=== PATIENT | female | born 1965 | race American Indian/Alaskan Native ===

== ENCOUNTER 2019-05-24 20:40 | Emergency (ER) | payer SELFPAY ==
[2019-05-24 20:58] VITALS: BP 172/96
--- NOTE | 2019-05-24 21:00 | Emergency Department Report ---
Blank Doc - Documentation Documentation: 54-year-old female that presents with mid-back pain s/p fall. Denies any neck, lower back, or head injuries. This initial assessment/diagnostic orders/clinical plan/treatment(s) is/are subject to change based on patient's health status, clinical progression and re- assessment by fellow clinical providers in the ED. Further treatment and workup at subsequent clinical providers discretion. Patient/guardians urged not to elope from the ED as their condition may be serious if not clinically assessed and managed. Initial orders include: 1- Patient sent to [facility] for further evaluation and treatment 2- xrays
--- NOTE | 2019-05-24 22:31 | XRay Report ---
CLINICAL DATA: pain s/p fall TECHNICAL DATA: AP and lateral views were obtained of the thoracic spine. FINDINGS: Degenerative changes thoracic spine noted. Slight indentation superior aspect of the T11 vertebral zeeshan dy, this raises concern of a minimally compressed vertebral body fracture. MR may be of benefit for f urther evaluation. Degenerative changes with anterior osteophytes are present IMPRESSION: Possible minimal compression fracture T11 as noted MR may be of benefit for further evaluation Signer Name: Arash Hart MD Signed: 05/24/2019 10:27 PM Workstation Name: [id number]
--- NOTE | 2019-05-24 23:47 | Emergency Department Report ---
ED Back Pain/Injury HPI - General Chief Complaint: Back Pain/Injury Stated Complaint: LOWER PAIN Time Seen by Provider: 05/24/19 20:59 Source: patient Limitations: No Limitations - History of Present Illness Initial Comments: Ms Sanchez is a 54 y/o aaf who presents for for upper back pain s/p GLF 2 days ago. 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 4/10 aching exacerbated by bending twisting. there is no numbness no tingling no loss or decrease in bowel of bladder function, pt remains ambulatory to baseline, pt drove self to ed tonight. Complaint: back pain Onset/Timin -: days(s) Similar Symptoms Previously: Yes Place: street Radiation: none Severity: moderate Severity scale (0 -10): 5 Quality: aching Consistency: intermittent Worsens With: movement, other (bending twisting ) Context: fall Associated Symptoms: denies: weakness, numbness, difficulty walking, difficulty urinating, incontinence, constipation, loss of appetite, shortness of breath - Related Data Previous Rx's Medication Instructions Recorded Last Taken Type traMADoL [Ultram 50 MG tab] 50 mg PO Q6HR PRN #20 tablet 05/08/14 Unknown Rx Cyclobenzaprine [Flexeril] 10 mg PO QHS PRN #10 tablet 06/23/18 Unknown Rx Ibuprofen [Motrin] 600 mg PO Q8H PRN #20 tablet 06/23/18 Unknown Rx amLODIPine [Norvasc] 10 mg PO DAILY #20 tab 06/23/18 Unknown Rx Acetaminophen/Codeine [Tylenol 1 tab PO Q6H PRN #12 tab 05/25/19 Unknown Rx /Codeine # 3 tab] Cyclobenzaprine [Flexeril] 10 mg PO TID PRN #30 tablet 05/25/19 Unknown Rx Naproxen [Naprosyn] 500 mg PO BID PRN #30 tablet 05/25/19 Unknown Rx Allergies Allergy/AdvReac Type Severity Reaction Status Date / Time No Known Allergies Allergy Verified 09/30/14 03:02 ED Review of Systems ROS: Stated complaint: LOWER PAIN Other details as noted in HPI Constitutional: denies: chills, fever Eyes: denies: eye pain, eye discharge, vision change ENT: denies: ear pain, throat pain Respiratory: denies: cough, shortness of breath, wheezing Cardiovascular: denies: chest pain, palpitations Endocrine: no symptoms reported Gastrointestinal: denies: abdominal pain, nausea, diarrhea Genitourinary: denies: urgency, dysuria, discharge Musculoskeletal: back pain, arthralgia. denies: joint swelling Skin: denies: rash, lesions Neurological: denies: headache, weakness, paresthesias Psychiatric: denies: anxiety, depression Hematological/Lymphatic: denies: easy bleeding, easy bruising ED Past Medical Hx - Past Medical History Previous Medical History?: Yes Additional medical history: Obesity - Surgical History Past Surgical History?: Yes Additional Surgical History: R knee surgery - Social History Smoking Status: Former Smoker Substance Use Type: None - Medications Home Medications: Home Medications Medication Instructions Recorded Confirmed Last Taken Type traMADoL [Ultram 50 MG tab] 50 mg PO Q6HR PRN #20 tablet 05/08/14 09/30/14 Unknown Rx Cyclobenzaprine [Flexeril] 10 mg PO QHS PRN #10 tablet 06/23/18 Unknown Rx Ibuprofen [Motrin] 600 mg PO Q8H PRN #20 tablet 06/23/18 Unknown Rx amLODIPine [Norvasc] 10 mg PO DAILY #20 tab 06/23/18 Unknown Rx Acetaminophen/Codeine [Tylenol 1 tab PO Q6H PRN #12 tab 05/25/19 Unknown Rx /Codeine # 3 tab] Cyclobenzaprine [Flexeril] 10 mg PO TID PRN #30 tablet 05/25/19 Unknown Rx Naproxen [Naprosyn] 500 mg PO BID PRN #30 tablet 05/25/19 Unknown Rx ED Physical Exam - General Limitations: No Limitations General appearance: alert, in no apparent distress - Head Head exam: Present: atraumatic, normocephalic - Eye Eye exam: Present: normal appearance, PERRL, EOMI Pupils: Present: normal accommodation - ENT ENT exam: Present: normal orophraynx, mucous membranes moist - Neck Neck exam: Present: normal inspection, full ROM. Absent: tenderness, meningismus, lymphadenopathy, thyromegaly - Expanded Neck Exam Expanded Neck exam: Absent: tenderness, midline deformity, anterior neck swelling, thyroid mass, carotid bruit, tracheal deviation - Respiratory Respiratory exam: Present: normal lung sounds bilaterally. Absent: respiratory distress, wheezes, stridor, chest wall tenderness - Cardiovascular Cardiovascular Exam: Present: regular rate, normal rhythm, normal heart sounds. Absent: systolic murmur, diastolic murmur, rubs, gallop - GI/Abdominal GI/Abdominal exam: Present: soft, normal bowel sounds. Absent: distended, tenderness, guarding, rebound, rigid, bruit, hernia - Rectal Rectal exam: Present: deferred - Extremities Exam Extremities exam: Present: normal inspection, full ROM, normal capillary refill. Absent: tenderness, joint swelling - Back Exam Back exam: Present: normal inspection, full ROM, tenderness, paraspinal tenderness. Absent: CVA tenderness (R), CVA tenderness (L), muscle spasm, vertebral tenderness, rash noted - Expanded Back Exam Expanded Back exam: Absent: saddle anesthesia Back exam: Negative Straight Leg Raising: Left, Right - Neurological Exam Neurological exam: Present: alert, oriented X3, CN II-XII intact, normal gait, reflexes normal. Absent: motor sensory deficit - Expanded Neurological Exam Expanded Patient oriented to: Present: person, place, time Speech: Present: fluid speech Cranial nerves: EOM's Intact: Normal, Gag Reflex: Normal, Tongue Deviation: Normal, Nystagmus: Normal, Facial Sensation: Normal Cerebellar function: Finger to Nose: Normal Upper motor neuron: Franky Neglect: Normal, Pronator Drift: Normal Sensory exam: Upper Extremity Light Touch: Normal, Upper Extremity Temperature: Normal, UE 2 Point Discrimination: Normal, Lower Extremity Light Touch: Normal, Lower Extremity Temperature: Normal, LE 2 Point Discrimination: Normal Motor strength exam: RUE: 5, LUE: 5, RLE: 5, LLE: 5 DTR: ankle (R): 2+, ankle (L): 2+ Best Eye Response (Pankaj): (4) open spontaneously Best Motor Response (Bartlett): (6) obeys commands Best Verbal Response (Bartlett): (5) oriented Pankaj Total: 15 - Psychiatric Psychiatric exam: Present: normal affect, normal mood - Skin Skin exam: Present: warm, dry, intact, normal color. Absent: rash ED Course Vital Signs 05/24/19 20:54 Temperature 98.5 F Pulse Rate 94 H Respiratory 18 Rate Blood Pressure 172/96 O2 Sat by Pulse 96 Oximetry ED Medical Decision Making - Radiology Data Radiology results: report reviewed, image reviewed Ordering Physician: TRISTIAN TRUJILLO NP Date of Service: 05/24/19 Procedure(s): XR spine thoracic 2V Accession Number(s): [id number] cc: TRISTIAN TRUJILLO NP Fluoro Time In Minutes: CLINICAL DATA: pain s/p fall TECHNICAL DATA: AP and lateral views were obtained of the thoracic spine. FINDINGS: Degenerative changes thoracic spine noted. Slight indentation superior aspect of the T11 vertebral body, this raises concern of a minimally compressed vertebral body fracture. MR may be of benefit for further evaluation. Degenerative changes with anterior osteophytes are present IMPRESSION: Possible minimal compression fracture T11 as noted MR may be of benefit for further evaluation Signer Name: Arash Hart MD Signed: 05/24/2019 10:27 PM Workstation Name: [id number] Transcribed By: KAY Dictated By: Arash Hart MD Electronically Authenticated By: Arash Hart MD Signed Date/Time: 05/24/192226 DD/ 25 TD/TT: - Medical Decision Making This an upper back strain with possible T11 minimal compression fracture plan follow up with [facility] in 2-3 days, Naproxen. flexeril, moist heat therapy , return to ed if symptoms worsen. pt verbalized agreement and understanding of discharge plan. Critical care attestation.: If time is entered above; I have spent that time in minutes in the direct care of this critically ill patient, excluding procedure time. ED Disposition Clinical Impression: Compression fracture Fall Qualifiers: Encounter type: initial encounter Qualified Code(s): W19.XXXA - Unspecified fall, initial encounter Upper back strain Qualifiers: Encounter type: initial encounter Qualified Code(s): S29.012A - Strain of muscle and tendon of back wall of thorax, initial encounter Disposition: -01 TO HOME OR SELFCARE Is pt being admited?: No Does the pt Need Aspirin: No Condition: Stable Instructions: Muscle Strain (ED) Additional Instructions: You may have a minor compression fracture , follow up with orthospine specialist as directed return to ed if symptoms worsen, Prescriptions: Cyclobenzaprine [Flexeril] 10 mg PO TID PRN #30 tablet PRN Reason: Muscle Spasm Naproxen [Naprosyn] 500 mg PO BID PRN #30 tablet PRN Reason: pain Acetaminophen/Codeine [Tylenol /Codeine # 3 tab] 1 tab PO Q6H PRN #12 tab PRN Reason: severe pain Referrals: STU LONG MD [Referring] - 3-5 Days Forms: Work/School Release Form(ED) Time of Disposition: 00:06
== END 2019-05-25 00:15 | disposition home or self-care (01) ==
LOC: ED 20:40
DX: S22.000A Wedge compression fracture of unspecified thoracic vertebra, initial encounter for closed fracture (principal); W01.198A Fall on same level from slipping, tripping and stumbling with subsequent striking against other object, initial encounter; Z79.1 Long term (current) use of non-steroidal anti-inflammatories (NSAID); Z79.899 Other long term (current) drug therapy; Y93.02 Activity, running; Y92.488 Other paved roadways as the place of occurrence of the external cause; Y99.8 Other external cause status
CPT/HCPCS: 72070; 99283

== ENCOUNTER 2019-08-10 09:28 | Outpatient (CLI) | payer OTHER ==
--- NOTE | 2019-08-10 11:15 | XRay Report ---
LUMBAR SPINE INDICATION / CLINICAL INFORMATION: BACK PAIN COMPARISON: 06/13/2018. FINDINGS: Frontal and lateral radiographs of the lumbar spine were obtained. Coned down lateral view of the lum bosacral region was also obtained. Vertebral body heights are maintained without evidence of acute fr acture or vertebral body subluxation. Again noted is marked facet arthropathy throughout the lumbar s pine, worse within the inferior portion. A large anterior syndesmophyte at L2-L3 is noted. No signifi cant intervertebral disc space narrowing. IMPRESSION: Lumbar spine without evidence of acute osseous injury. Stable marked facet arthropathy throughout the lumbar spine, most pronounced within the lower portion . Intervertebral disc space heights are relatively preserved. Signer Name: Eduardo Agudelo MD Signed: 08/10/2019 11:11 AM Workstation Name: [id number]
== END 2019-08-10 09:29 | disposition home or self-care (01) ==
LOC: XRAY 09:28
PROVIDERS: ATTEND Internal Medicine
DX: M47.816 Spondylosis without myelopathy or radiculopathy, lumbar region (principal); M19.90 Unspecified osteoarthritis, unspecified site; M79.89 Other specified soft tissue disorders; M54.5 Low back pain
CPT/HCPCS: 72100